=== PATIENT | female | born 1960 | race Caucasian/White ===

== ENCOUNTER 2018-12-21 09:50 | Day surgery (SDC) | payer OTHER ==
[2018-12-21] MEDS ORDERED: LIDOCAINE 2% MDV (20MG/ML) 20ML VIAL IV ONE (09:51)
[2018-12-21] MEDS ORDERED: FENTANYL PF 100MCG/2ML VIAL IV ONE (09:51)
[2018-12-21] MEDS ORDERED: PROPOFOL 10 MG/ML VIAL IV ONE (09:51)
--- NOTE | 2018-12-22 09:00 | Operative Note ---
OPERATION: ESOPHAGOGASTRODUODENOSCOPY with multiple biopsies. INDICATION: Chronic gastroesophageal reflux disease. Prior history of gastric ulcers. ANESTHESIA: Intravenous sedation was administered by the department of anesthesiology and included Diprivan titrated to effect. PROCEDURE: Following informed consent from this alert individual, including a discussion of the risks and benefits of the procedure and an opportunity for the patient to ask questions, the patient was in the left lateral decubitus position. The Olympus [id number] video endoscope was inserted into the esophagus without resistance. The proximal esophagus had a normal appearance with normal folds and distensibility. The mid esophagus was likewise free from abnormalities. The squamocolumnar junction was smooth and well defined and approximated the diaphragmatic hiatus. The structure was traversed. The stomach was entered. There were multiple gastric fundal polyps noted throughout the fundus. There were no ulcerations or erosions noted. The pylorus was symmetrical and patent. The duodenal bulb, sweep and descending duodenum were examined in a serial fashion and found to be normal. The endoscope was then withdrawn back into the body of the stomach. Retroflexion accomplished following air insufflation failed to demonstrate any additional change. The endoscope was straightened. Multiple biopsies were taken from the gastric fundal polyps. The endoscope was then withdrawn back through a normal esophagus and removed from the patient. The patient tolerated the procedure well and was returned to the recovery area in stable condition. IMPRESSION: 1. Multiple gastric fundal polyps. 2. Otherwise unremarkable esophagogastroduodenoscopy. RECOMMENDATION: The patient was advised she should receive a copy of her pathology report at home in the next 2-3 weeks. If not, she was asked to call my office to review results of testing today. Further recommendations forthcoming pending those results. Followup will be with Ana Bragg DO. The patient should be maintained on the least amount of acid blockade necessary to control symptoms. As always, thank you for allowing me to participate in the care of your patient. CC: DO HARSH AvalosD
--- NOTE | 2018-12-22 09:00 | Operative Note ---
OPERATION: COLONOSCOPY to the cecum. INDICATION: Prior history of adenomatous polyps. Family history of colon cancer (mother). She presents today for surveillance. ANESTHESIA: Intravenous sedation was administered by the department of anesthesiology and included Diprivan titrated to effect. PROCEDURE: Following informed consent from this alert individual including a discussion of the risks and benefits of the procedure and an opportunity for the patient to ask questions, the patient was in the left lateral decubitus position. A digital rectal examination was performed. No abnormalities were noted. Following this, the Olympus [id number] video colonoscope was inserted into the rectum without resistance. The rectal mucosa had a normal appearance with normal folds and distensibility. The colonoscope was advanced up through the bowel to the level of the cecum without much difficulty. Throughout the bowel the mucosa appeared normal, the folds were normal, and the bowel was fairly well distensible. The cecum was defined by noting the appendiceal orifice and ileocecal valve. The colon preparation was good. From the base of the cecum, the colonoscope was then slowly withdrawn. No abnormalities were detected throughout. There might have been some small diverticula noted in the sigmoid region but at most, they were quite diminutive. Retroflexion in the rectum was endoscopically normal. The endoscope was straightened and removed. The patient tolerated the procedure well and was returned to the recovery area in stable condition. IMPRESSION: Unremarkable colonoscopy to the cecum without polyps noted. RECOMMENDATIONS: The patient was advised to have recheck colonoscopy in 5 years' time or sooner if problems arise. Followup will otherwise be with Ana Bragg DO. As always, thank you for allowing me to participate in the care of your patient. CC: DO TERESA Avalos
== END 2018-12-21 12:05 | disposition home or self-care (01) ==
LOC: HOP 09:50
PROVIDERS: ATTEND Internal Medicine Gastroenterology
DX: Z12.11 Encounter for screening for malignant neoplasm of colon (principal); Z86.010 Personal history of colon polyps; Z80.0 Family history of malignant neoplasm of digestive organs; K21.9 Gastro-esophageal reflux disease without esophagitis; Z87.19 Personal history of other diseases of the digestive system; K31.7 Polyp of stomach and duodenum
CPT/HCPCS: 43239; 00813; G0105; J3010